=== PATIENT | female | born 1935 | race Caucasian/White ===

== ENCOUNTER → 2023-05-28 | Outpatient (CLI) | payer MEDICARE, BC ==
--- NOTE | 2023-05-29 12:01 | MR ---
EXAMINATION TYPE: MR humerus RT w/wo con DATE OF EXAM: 05/28/2023 COMPARISON: Ultrasound 05/04/2023 HISTORY: 88-year-old female M79.89, Lump on internal Right arm at elbow level Technique: Multiplanar, multisequence images of the right humerus were obtained before and after admi nistration of 6 mL intravenous Gadavist gadolinium contrast. FINDINGS: At the patient's palpable site within the lateral antecubital fossa, corresponding to the mass seen o n ultrasound, there is a circumscribed, oval soft tissue nodule located in the subcutaneous adipose l gabby overlying the superficial fascia measuring 2.4 cm long by 1.5 cm wide by 1.1 cm thick. This is l ocated along the lateral margin of the cephalic vein and located lateral to the biceps myotendinous j unction and near vascular bundle. There is some minimal intrinsic bright T1-weighted signal but mostl y hypointense T1-weighted signal. There is heterogeneous T2-weighted signal and some peripheral enhan cement is noted. No underlying elbow joint effusion or abnormal bone marrow replacement of bone marrow edema. No other significant soft tissue abnormality seen. IMPRESSION: Indeterminate solid, circumscribed mass measuring 2.4 x 1.5 x 1.1 cm within the lateral antecubital f janelle centered within the subcutaneous adipose layer and overlying the superficial fascia. There is so me thin peripheral enhancement. It is located along the lateral margin of the cephalic vein and later al to the biceps myotendinous junction. No underlying osseous or soft tissue abnormality. Unclear if this represents some type of postinflammatory sequela or a neoplastic etiology such as nerve sheath o r mesenchymal tumor. Consider further surgical evaluation especially if there is progressive growth.
== END | disposition home or self-care (01) ==
LOC: RADMRIMAIN 07:15
PROVIDERS: ATTEND Family Medicine
DX: M79.89 Other specified soft tissue disorders (principal)
CPT/HCPCS: 73220; A9585

== ENCOUNTER → 2024-07-18 | Outpatient (CLI) | payer MEDICARE, BC ==
[2024-07-18 15:11] LABS: HCT 38.2 % (37.2-46.3); HGB 12.4 g/dL (12.0-15.0); MCH 30.5 pg (27.0-32.0); MCHC 32.5 g/dL (32.0-37.0); MCV 94.1 FL (80.0-97.0); NRBC Per 100 WBC 0 X 10*3/uL (0.00-0.01); Platelet Count 171 X 10*3/uL (140-440); RBC 4.06 X 10*6/uL (4.10-5.20); RDW 13.3 % (11.5-14.5)
[2024-07-18 15:12] LABS: Basophils # (A) 0.03 X 10*3/uL (0.00-0.10); Basophils % (A) 0.5 %; Eosinophils # (A) 0.06 X 10*3/uL (0.04-0.35); Lymphocytes # (A) 1.72 X 10*3/uL (0.90-5.00); Lymphocytes % (A) 27.7 %; Monocytes # (A) 0.38 X 10*3/uL (0.20-1.00); Monocytes % (A) 6.1 %; Neutrophils % (A) 64.5 %
[2024-07-18 15:28] LABS: % Iron Saturation 24.21 (12.00-45.00); ALT 12 U/L (8-44); AST 22 U/L (13-35); Albumin 4.1 g/dL (3.8-4.9); Albumin/Globulin Ratio 1.58 Ratio (1.60-3.17); Alkaline Phosphatase 100 U/L (41-126); BUN/Creat Ratio 27.33 Ratio (12.00-20.00); Blood Urea Nitrogen 16.4 mg/dL (9.0-27.0); Carbon Dioxide 23.1 mmol/L (21.6-31.8); Chloride 107 mmol/L (96-109); Chol/HDL Ratio 2.82 Ratio; Ferritin 61.1 ng/mL (10.0-291.0); Globulin 2.6 g/dL (1.6-3.3); Glucose 100 mg/dL (70-110); Iron 61 UG/DL (50-170); LDL Cholesterol,Calculated 98.8 mg/dL (0.0-131.0); Potassium 4.5 mmol/L (3.5-5.5); Sodium 142 mmol/L (135-145); Total Bilirubin 0.5 mg/dL (0.3-1.2); Total Iron Binding Capacity 252 UG/DL (228-460); Total Protein 6.7 g/dL (6.2-8.2)
== END | disposition home or self-care (01) ==
LOC: LABWHC1 10:28
PROVIDERS: ATTEND Family Medicine
DX: E78.5 Hyperlipidemia, unspecified (principal); R53.83 Other fatigue
CPT/HCPCS: 36415; 80053; 80061; 82306; 82607; 82728; 83036; 83540; 83550; 84443; 85025